=== PATIENT | male | born 1995 | race Two or more races ===

== ENCOUNTER 2017-04-22 19:48 | Emergency (ER) | payer OTHER ==
[~2017-04-22] VITALS: Ht 175.3 cm; Wt 77.1 kg
[2017-04-22 19:57] VITALS: BP 138/75
== END 2017-04-22 21:22 | disposition home or self-care (01) ==
LOC: ER 19:48
DX: S51.012D Laceration without foreign body of left elbow, subsequent encounter (principal); X58.XXXD Exposure to other specified factors, subsequent encounter

== ENCOUNTER 2019-09-14 09:29 | Emergency (ER) | payer OTHER ==
[~2019-09-14] VITALS: Ht 175.3 cm; Wt 93.0 kg
[2019-09-14 09:45] VITALS: BP 132/57
[2019-09-14] MEDS ORDERED: IBUPROFEN 800 MG TAB PO ONE (11:30)
[2019-09-14] MEDS ORDERED: METHOCARBAMOL 500 MG TAB PO ONE (11:30)
== END 2019-09-14 12:43 | disposition home or self-care (01) ==
LOC: ER 09:29
DX: S29.012A Strain of muscle and tendon of back wall of thorax, initial encounter (principal); N39.0 Urinary tract infection, site not specified; X50.9XXA Other and unspecified overexertion or strenuous movements or postures, initial encounter; Y93.89 Activity, other specified; Y92.89 Other specified places as the place of occurrence of the external cause; Y99.8 Other external cause status
CPT/HCPCS: 72070; 72100; 81002

== ENCOUNTER 2020-09-05 13:37 | Emergency (ER) | payer OTHER ==
[~2020-09-05] VITALS: Ht 175.3 cm; Wt 97.5 kg
[2020-09-05 14:45] VITALS: BP 144/82
[2020-09-05] MEDS ORDERED: IBUPROFEN 800 MG TAB PO ONE (16:00)
== END 2020-09-05 16:48 | disposition home or self-care (01) ==
LOC: ER 13:37
DX: S39.012A Strain of muscle, fascia and tendon of lower back, initial encounter (principal); M51.24 Other intervertebral disc displacement, thoracic region; X50.0XXA Overexertion from strenuous movement or load, initial encounter; Y93.89 Activity, other specified; Y92.89 Other specified places as the place of occurrence of the external cause; Y99.8 Other external cause status
CPT/HCPCS: 72131